=== PATIENT | male | born 1960 | race Caucasian/White ===

== ENCOUNTER 2018-01-26 20:20 | Emergency (ER) | payer BC ==
--- NOTE | 2018-01-26 20:54 | Emergency Department Record ---
History of Present Illness - General Chief Complaint: Abdominal Pain Stated Complaint: ABDOMINAL PAIN Time Seen by Provider: 01/26/18 20:37 Source: Patient Mode of Arrival: Ambulatory Limitations: No limitations - History of Present Illness Initial Comments: The patient is here due to AP for 33 hours. The onset was yesterday about noon and the patient describes the pain as an epigastric aching with RUQ pain that comes and goes. He has had no nausea or vomiting but has had loose stools today. The pain does worsen at times and cause pressure up into the chest on the R side. He denies any CP or SOB but has had a cough with sputum for a few weeks. The patient has been eating well and denies the pain getting better or worse with the pain. The patient also has had bilateral leg swelling for the last 2-3 months. MD Complaint: Abdominal pain Onset/Timin -: Days(s) Location: Epigastric, RUQ Radiation: RLQ Severity scale (1-10): 6 Quality: Aching Consistency: Constant Improves With: Nothing Associated Symptoms: Diarrhea - Related Data Home Medications Medication Instructions Recorded Confirmed Last Taken Albuterol Sulfate [Proair Hfa] 1 - 2 puff IH .EVERY 4-6 HOURS PRN 01/26/1801/26 Unknown Allergies Allergy/AdvReac Type Severity Reaction Status Date / Time No Known Drug Allergies Allergy Verified 01/26/18 20:25 Travel Screening - Travel/Exposure Within Last 30 Days Have you traveled within the last 30 days?: No - Travel Symptoms Symptom Screening: None Review of Systems Constitutional: Denies: Chills, Fever Eyes: Denies: Eye discharge ENT: Denies: Congestion Respiratory: Denies: Cough, Dyspnea, Hemoptysis Cardiovascular: Denies: Arrhythmia, Chest pain Endocrine: Denies: Fatigue Gastrointestinal: Reports: Abdominal pain, Diarrhea. Denies: Nausea, Vomiting Genitourinary: Denies: Dysuria Musculoskeletal: Denies: Arthralgia Past Medical History - SOCIAL HISTORY Smoking Status: Never smoker - RESPIRATORY Hx Respiratory Disorders: Yes Hx Asthma: Yes Hx Pneumonia: Yes (12/2017) Hx Sleep Apnea: Yes Hx of CPAP: Yes (not using right now) - CARDIOVASCULAR Hx Cardio Disorders: Yes Hx Hypertension: Yes Comment:: high cholesterol - NEURO Hx Neuro Disorders: No - GI Hx GI Disorders: Yes Comment:: Gallbladder issues-elevated labs; umbilical hernia, ?abd hernia - Hx Genitourinary Disorders: No - ENDOCRINE Hx Endocrine Disorders: No - MUSCULOSKELETAL Hx Musculoskeletal Disorders: Yes Hx Arthritis: Yes - PSYCH Hx Psych Problems: No - HEMATOLOGY/ONCOLOGY Hx Hematology/Oncology Disorders: No Family Medical History Any Significant Family History?: Yes Hx Diabetes: Mother Hx HTN: Father Physical Exam - General General Appearance: Alert, Oriented x3, Cooperative, No acute distress - Head Head exam: Atraumatic, Normocephalic, Normal inspection - Eye Eye exam: Normal appearance, PERRL, EOMI - Neck Neck exam: Normal inspection, Full ROM. negative: Tenderness - Respiratory Respiratory exam: Normal lung sounds bilaterally. negative: Respiratory distress - Cardiovascular Cardiovascular Exam: Regular rate, Normal rhythm, Systolic murmur (1/6 DESIREE.). negative: Normal heart sounds - GI/Abdominal GI/Abdominal exam: Soft, Tenderness (There is mild RUQ and epigastric tenderness.). negative: Distended, Rebound, Rigid - Extremities Extremities exam: Normal inspection, Full ROM, Normal capillary refill, Pedal edema (2+ bilaterally.). negative: Tenderness - Back Back exam: Reports: Normal inspection - Neurological Neurological exam: Alert, Normal gait. negative: Abnormal gait, Motor sensory deficit - Skin Skin exam: negative: Rash Course Vital Signs 01/26/18 01/26/18 20:26 20:30 Temperature 97.9 F Pulse Rate 87 Pulse Rate [ 92 H Pulse Ox Probe] Respiratory 20 Rate Blood Pressure 181/103 Blood Pressure 174/96 [Left Arm] Pulse Ox 96 - Reevaluation(s) Reevaluation #1: The patient is doing OK at this time. He denies any significant pain or discomfort. I did discuss the lab results with him and the need for further evaluation. 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 He has seen Dr. Gil and would like to go to [facility]. 01/26/18 21:58 Reevaluation #2: I did discuss the case with Dr. Quick at [facility] and she does accept the patient for admission. I did discuss the case at length and the need for an abdominal US and surgical and cardiology consults. 01/26/18 22:27 01/26/18 22:28 Medical Decision Making - Data Complexity MDM Data: Labs Ordered and/or Reviewed, X-Ray Ordered and/or Reviewed, EKG Ordered and/or Reviewed - Lab Data Result diagrams: 01/26/18 20:51 01/26/18 20:51 - EKG Data -: EKG Interpreted by Me EKG: No Acute Changes - Radiology Data Radiology results: Report reviewed (CXR: CMG Abd CT: Poss thickened GB wall with fluid.) Disposition Disposition: Transfer Disposition: Acute Care Hospital Transfer Transfer To: [facility] Reason For Transfer: Cardiology Accepting Physician: Abdelrahman Time Discussed w/Accepting Physician: 10:30 Condition: (2) Stable Forms: Patient Portal Access Time of Disposition: 23:42 Quality - Quality Measures Quality Measures: N/A - Blood Pressure Screening View Details: Yes Does Patient Have Any of the Following: Active Dx of HTN Blood Pressure Classification: Hypertensive Reading Systolic Measurement: 181 Diastolic Measurement: 103 Screening for High Blood Pressure: Patient Exclusion, Hx of HTN [G9744]
[2018-01-26 20:56] LABS: BASO % 0.5 % (0-6); EOS % 0.9 % (0-6); GRAN % 63.5 % (47-80); HEMATOCRIT 42.4 % (42.0-52.0); HEMOGLOBIN 13.9 gm/dl (14.0-18.0); LYMPH % 27.1 % (16-45); MEAN CELL VOLUME 90.4 fl (81-97); MEAN CORPUSCULAR HEMOGLOBIN 29.6 pg (27-33); MEAN CORPUSCULAR HGB CONC 32.8 g/dl (32-36); MEAN PLATELET VOLUME 10.3 fl (7.4-10.4); PLATELET COUNT 216 K/uL (130-400); RED BLOOD COUNT 4.69 M/uL (4.40-5.70); RED CELL DISTRIBUTION WIDTH 13.4 % (11.5-14.5); WHITE BLOOD COUNT W/O DIFF 8.1 K/uL (4.2-12.2)
[2018-01-26 21:04] LABS: BLOOD UREA NITROGEN 21 mg/dL (6-20); CREATININE 0.8 mg/dL (0.7-1.2); EST GLOMERULAR FILTRATION RATE > 60 mL/min
[2018-01-26 21:05] LABS: TOTAL PROTEIN 6.4 g/dL (6.6-8.7)
[2018-01-26 21:07] LABS: GLUCOSE,RANDOM 149 mg/dL (74-109); INR 1.1; PARTIAL THROMBOPLASTIN TIME 26.5 SECONDS (24.5-39.1)
[2018-01-26 21:09] LABS: ALBUMIN 4.1 g/dL (4.0-5.0); ALKALINE PHOSPHATASE 56 U/L (40-129); ALT/SGPT 149 U/L (<41); AST/SGOT 65 U/L (10.0-50.0); BILIRUBIN,DIRECT < 0.2 mg/dL (0-0.3)
[2018-01-26 21:10] LABS: CREATINE PHOSPHOKINASE 245 U/L (39-308)
[2018-01-26 21:11] LABS: CKMB 8.9 ng/mL (<6.73)
[2018-01-26 21:14] LABS: CKMB RELATIVE INDEX 3.63 % (0-4)
[2018-01-26 21:50] LABS: URINE APPEARANCE CLEAR; URINE BILIRUBIN NEGATIVE (NEGATIVE); URINE BLOOD NEGATIVE (NEGATIVE); URINE COLOR YELLOW; URINE GLUCOSE (UA) NEGATIVE (NEGATIVE); URINE KETONE NEGATIVE (NEGATIVE); URINE LEUKOCYTE ESTERASE NEGATIVE (NEGATIVE); URINE NITRITE NEGATIVE (NEGATIVE); URINE PROTEIN NEGATIVE (NEGATIVE); URINE UROBILINOGEN 0.2 E.U./dL (0.20 - 1.00)
[2018-01-26] MEDS ORDERED: FUROSEMIDE IV 40MG/4ML VIAL IVP ONE (22:02)
[2018-01-26] MEDS ORDERED: ASPIRIN 325 MG TABLET PO ONE (22:18)
--- NOTE | 2018-01-28 10:47 | RADIOLOGY REPORT ---
EXAM: CHEST, TWO VIEWS HISTORY: DIFFICULTY IN BREATHING. TECHNIQUE: PA and lateral views of the chest were obtained. Comparison: Portable chest 11/22/11. FINDINGS: Cardiomegaly. There is a somewhat globular configuration which can be seen with pericardial effusion. No definite acute infiltrate seen. No pleural effusion or pneumothorax evident. Hypertrophic spurring in the spine. IMPRESSION: CARDIOMEGALY. NO DEFINITE ACUTE INFILTRATE SEEN. JOB NUMBER: [id number] MTDD
--- NOTE | 2018-01-28 10:59 | CT SCAN REPORT ---
EXAM: EMERGENCY CT OF THE ABDOMEN AND PELVIS WITHOUT CONTRAST HISTORY: ABDOMINAL PAIN. TECHNIQUE: Axial CT scan of the abdomen and pelvis was performed without oral or IV contrast. Comparison: No prior CT. FINDINGS: No calcified gallstones are seen within the gallbladder, however, there is a suggestion of some mild thickening of the gallbladder wall or possibly some pericholecystic fluid. Clinical correlation as to the possibility of acute cholecystitis suggested and if clinically warranted, follow -up gallbladder ultrasound might be useful. No intrarenal calculi identified on either side. No hydronephrosis or hydroureter is seen on either side. No definite ureteral calculus seen on either side and no bladder calculus evident. Evaluation of the bowel and viscera is extremely limited without oral or IV contrast. Given this limitation, no definite hepatic, splenic, adrenal, pancreatic, or renal mass identified. Some coronary artery calcification is present. Some prostate calcification is noted. The appendix is visualized as a normal caliber structure with no appendicitis evident. There is some hazy density in the subcutaneous tissues anteriorly. This may represent some cellulitis and clinical correlation is suggested. No discreet abscess seen in the subcutaneous tissues. There is a periumbilical anterior abdominal wall hernia containing adipose tissue, but no bowel. No free intraperitoneal air or free intraperitoneal fluid evident. Degenerative disk disease at the L3-L4 interspace. There is some mild streaky density in the retroperitoneum along the course of both ureters. This may be on a post inflammatory basis, but does not appear to be causing any obstruction of either ureter currently. Correlation with urinalysis, however, is suggested to exclude current urinary tract infection. IMPRESSION: 1. NO CALCIFIED GALLSTONES SEEN IN THE GALLBLADDER, BUT THE GALLBLADDER DOES HAVE A SOMEWHAT THICK WALLED APPEARANCE POSSIBLY WITH SOME FLUID AROUND THE GALLBLADDER. CLINICAL CORRELATION TO ACUTE CHOLECYSTITIS IS SUGGESTED. 2. NO URINARY TRACT CALCULI OR HYDRONEPHROSIS EVIDENT. SLIGHT SOFT TISSUE STRANDING ABOUT BOTH URETERS, HOWEVER, POSSIBLY RELATED TO PRIOR INFECTION. CLINICAL CORRELATION TO URINARY TRACT INFECTION IS SUGGESTED. 3. HAZY INCREASED DENSITY IN THE SUBCUTANEOUS TISSUES OF THE ANTERIOR ABDOMINAL WALL COULD REPRESENT SOME CELLULITIS. 4. THE APPENDIX APPEARS NEGATIVE. NO FREE AIR OR FREE FLUID EVIDENT. 5. CORONARY ARTERY CALCIFICATION. 6. PROSTATE CALCIFICATION WELL. JOB NUMBER: [id number] [facility]
--- NOTE | 2018-01-28 18:50 | Emergency Department Record ---
History of Present Illness - General Chief Complaint: Abdominal Pain Stated Complaint: ABDOMINAL PAIN Time Seen by Provider: 01/26/18 20:37 Source: Patient Mode of Arrival: Ambulatory Limitations: No limitations - History of Present Illness MD Complaint: Abdominal pain Onset/Timin -: Days(s) Location: Epigastric, RUQ Radiation: RLQ Severity scale (1-10): 6 Quality: Aching Consistency: Constant Improves With: Nothing Associated Symptoms: Diarrhea - Related Data Home Medications Medication Instructions Recorded Confirmed Last Taken Albuterol Sulfate [Proair Hfa] 1 - 2 puff IH .EVERY 4-6 HOURS PRN 01/26/1801/26 Unknown Allergies Allergy/AdvReac Type Severity Reaction Status Date / Time No Known Drug Allergies Allergy Verified 01/26/18 20:25 Travel Screening - Travel/Exposure Within Last 30 Days Have you traveled within the last 30 days?: No - Travel Symptoms Symptom Screening: None Review of Systems Constitutional: Denies: Chills, Fever Eyes: Denies: Eye discharge ENT: Denies: Congestion Respiratory: Denies: Cough, Dyspnea, Hemoptysis Cardiovascular: Denies: Arrhythmia, Chest pain Endocrine: Denies: Fatigue Gastrointestinal: Reports: Abdominal pain, Diarrhea. Denies: Nausea, Vomiting Genitourinary: Denies: Dysuria Musculoskeletal: Denies: Arthralgia Past Medical History - SOCIAL HISTORY Smoking Status: Never smoker - RESPIRATORY Hx Respiratory Disorders: Yes Hx Asthma: Yes Hx Pneumonia: Yes (12/2017) Hx Sleep Apnea: Yes Hx of CPAP: Yes (not using right now) - CARDIOVASCULAR Hx Cardio Disorders: Yes Hx Hypertension: Yes Comment:: high cholesterol - NEURO Hx Neuro Disorders: No - GI Hx GI Disorders: Yes Comment:: Gallbladder issues-elevated labs; umbilical hernia, ?abd hernia - Hx Genitourinary Disorders: No - ENDOCRINE Hx Endocrine Disorders: No - MUSCULOSKELETAL Hx Musculoskeletal Disorders: Yes Hx Arthritis: Yes - PSYCH Hx Psych Problems: No - HEMATOLOGY/ONCOLOGY Hx Hematology/Oncology Disorders: No Family Medical History Any Significant Family History?: Yes Hx Diabetes: Mother Hx HTN: Father Physical Exam - General Limitations: No limitations Course Vital Signs 01/26/18 01/26/18 01/26/18 20:26 20:30 21:21 Temperature 97.9 F Pulse Rate 87 Pulse Rate [ Station Cashier ] Pulse Rate [ 92 H 76 Pulse Ox Probe] Respiratory 20 18 Rate Blood Pressure 181/103 Blood Pressure 174/96 149/90 [Left Arm] Pulse Ox 96 96 01/26/18 01/26/18 22:17 23:01 Temperature Pulse Rate Pulse Rate [ 73 Station Cashier ] Pulse Rate [ 75 Pulse Ox Probe] Respiratory 22 20 Rate Blood Pressure Blood Pressure 164/99 144/78 [Left Arm] Pulse Ox 95 95 Medical Decision Making - Lab Data Result diagrams: 01/26/18 20:51 01/26/18 20:51 Lab Results 01/26/18 01/26/18 01/26/18 Range/Units 20:50 20:51 20:51 WBC 8.1 (4.2-12.2) K/uL RBC 4.69 (4.40-5.70) M/uL Hgb 13.9 L (14.0-18.0) gm/dl Hct 42.4 (42.0-52.0) % MCV 90.4 (81-97) fl MCH 29.6 (27-33) pg MCHC 32.8 (32-36) g/dl RDW 13.4 (11.5-14.5) % Plt Count 216 (130-400) K/uL MPV 10.3 (7.4-10.4) fl Gran % 63.5 (47-80) % Lymphocytes % 27.1 (16-45) % Monocytes % 8.0 (0-9) % Eosinophils % 0.9 (0-6) % Basophils % 0.5 (0-6) % PT 11.0 (9.5-12.1) SECONDS INR 1.1 APTT 26.5 (24.5-39.1) SECONDS Sodium (136-145) mmol/L Potassium (3.4-4.5) mmol/L Chloride (98-107) mmol/L Carbon Dioxide (22-29) mmol/L Anion Gap (7-16) BUN (6-20) mg/dL Creatinine (0.7-1.2) mg/dL Estimated GFR mL/min Random Glucose (74-109) mg/dL Calcium (8.6-10.0) mg/dL Total Bilirubin (0.2-1.0) mg/dL Direct Bilirubin (0-0.3) mg/dL AST (10.0-50.0) U/L ALT (<41) U/L Alkaline Phosphatase (40-129) U/L Creatine Kinase (39-308) U/L CK-MB (CK-2) (<6.73) ng/mL CK-MB (CK-2) Rel Index (0-4) % Troponin T (0-0.010) ng/mL NT-Pro-B Natriuret Pep (<125) pg/mL Total Protein (6.6-8.7) g/dL Albumin (4.0-5.0) g/dL Lipase 34 (13-60) U/L Urine Color Urine Appearance Urine pH (5.0-8.0) Ur Specific [place] (1.002-1.030) Urine Protein (NEGATIVE) Urine Glucose (UA) (NEGATIVE) Urine Ketones (NEGATIVE) Urine Blood (NEGATIVE) Urine Nitrite (NEGATIVE) Urine Bilirubin (NEGATIVE) Urine Urobilinogen (0.20 - 1.00) E.U./dL Ur Leukocyte Esterase (NEGATIVE) 01/26/18 01/26/18 01/26/18 Range/Units 20:51 20:51 20:51 WBC (4.2-12.2) K/uL RBC (4.40-5.70) M/uL Hgb (14.0-18.0) gm/dl Hct (42.0-52.0) % MCV (81-97) fl MCH (27-33) pg MCHC (32-36) g/dl RDW (11.5-14.5) % Plt Count (130-400) K/uL MPV (7.4-10.4) fl Gran % (47-80) % Lymphocytes % (16-45) % Monocytes % (0-9) % Eosinophils % (0-6) % Basophils % (0-6) % PT (9.5-12.1) SECONDS INR APTT (24.5-39.1) SECONDS Sodium 139 (136-145) mmol/L Potassium 4.1 (3.4-4.5) mmol/L Chloride 103 (98-107) mmol/L Carbon Dioxide 24.0 (22-29) mmol/L Anion Gap 12.0 (7-16) BUN 21 H (6-20) mg/dL Creatinine 0.8 (0.7-1.2) mg/dL Estimated GFR > 60 mL/min Random Glucose 149 H (74-109) mg/dL Calcium 8.9 (8.6-10.0) mg/dL Total Bilirubin 0.40 (0.2-1.0) mg/dL Direct Bilirubin < 0.2 (0-0.3) mg/dL AST 65 H (10.0-50.0) U/L ALT 149 H (<41) U/L Alkaline Phosphatase 56 (40-129) U/L Creatine Kinase 245 Cancelled (39-308) U/L CK-MB (CK-2) 8.9 H (<6.73) ng/mL CK-MB (CK-2) Rel Index 3.63 (0-4) % Troponin T 0.018 H (0-0.010) ng/mL NT-Pro-B Natriuret Pep 1595.00 H (<125) pg/mL Total Protein 6.4 L (6.6-8.7) g/dL Albumin 4.1 (4.0-5.0) g/dL Lipase (13-60) U/L Urine Color Urine Appearance Urine pH (5.0-8.0) Ur Specific [place] (1.002-1.030) Urine Protein (NEGATIVE) Urine Glucose (UA) (NEGATIVE) Urine Ketones (NEGATIVE) Urine Blood (NEGATIVE) Urine Nitrite (NEGATIVE) Urine Bilirubin (NEGATIVE) Urine Urobilinogen (0.20 - 1.00) E.U./dL Ur Leukocyte Esterase (NEGATIVE) 01/26/18 Range/Units 21:51 WBC (4.2-12.2) K/uL RBC (4.40-5.70) M/uL Hgb (14.0-18.0) gm/dl Hct (42.0-52.0) % MCV (81-97) fl MCH (27-33) pg MCHC (32-36) g/dl RDW (11.5-14.5) % Plt Count (130-400) K/uL MPV (7.4-10.4) fl Gran % (47-80) % Lymphocytes % (16-45) % Monocytes % (0-9) % Eosinophils % (0-6) % Basophils % (0-6) % PT (9.5-12.1) SECONDS INR APTT (24.5-39.1) SECONDS Sodium (136-145) mmol/L Potassium (3.4-4.5) mmol/L Chloride (98-107) mmol/L Carbon Dioxide (22-29) mmol/L Anion Gap (7-16) BUN (6-20) mg/dL Creatinine (0.7-1.2) mg/dL Estimated GFR mL/min Random Glucose (74-109) mg/dL Calcium (8.6-10.0) mg/dL Total Bilirubin (0.2-1.0) mg/dL Direct Bilirubin (0-0.3) mg/dL AST (10.0-50.0) U/L ALT (<41) U/L Alkaline Phosphatase (40-129) U/L Creatine Kinase (39-308) U/L CK-MB (CK-2) (<6.73) ng/mL CK-MB (CK-2) Rel Index (0-4) % Troponin T (0-0.010) ng/mL NT-Pro-B Natriuret Pep (<125) pg/mL Total Protein (6.6-8.7) g/dL Albumin (4.0-5.0) g/dL Lipase (13-60) U/L Urine Color Yellow Urine Appearance Clear Urine pH 5.5 (5.0-8.0) Ur Specific [place] 1.020 (1.002-1.030) Urine Protein Negative (NEGATIVE) Urine Glucose (UA) Negative (NEGATIVE) Urine Ketones Negative (NEGATIVE) Urine Blood Negative (NEGATIVE) Urine Nitrite Negative (NEGATIVE) Urine Bilirubin Negative (NEGATIVE) Urine Urobilinogen 0.2 (0.20 - 1.00) E.U./dL Ur Leukocyte Esterase Negative (NEGATIVE) Disposition Disposition: Transfer Clinical Impression: CHF (congestive heart failure) Qualifiers: Heart failure type: unspecified Heart failure chronicity: unspecified Qualified Code(s): I50.9 - Heart failure, unspecified Disposition: Acute Care Hospital [facility] Reason For Transfer: Cardoilogy Accepting Physician: Hospitalist. Time Discussed w/Accepting Physician: 18:50 Condition: (2) Stable Forms: Patient Portal Access Quality - Quality Measures Quality Measures: N/A - Blood Pressure Screening View Details: Yes Does Patient Have Any of the Following: Active Dx of HTN Blood Pressure Classification: Hypertensive Reading Systolic Measurement: 181 Diastolic Measurement: 103 Screening for High Blood Pressure: Patient Exclusion, Hx of HTN [G9290]
== END 2018-01-26 23:15 | disposition short-term general hospital (02) ==
LOC: ER 20:20
DX: I50.9 Heart failure, unspecified (principal); R10.84 Generalized abdominal pain; R06.02 Shortness of breath; R19.7 Diarrhea, unspecified; I10 Essential (primary) hypertension
CPT/HCPCS: 71046; 74176; 80048; 80076; 81003; 82550; 82553; 83690; 83880; 84484; 85025; 85610; 85730; 93005; 93010; 96374; 99285; J1940

== ENCOUNTER 2019-03-18 17:57 | Emergency (ER) | payer BC ==
--- NOTE | 2019-03-18 18:10 | Emergency Department Record ---
History of Present Illness - General Chief Complaint: Cough Stated Complaint: THINKS HE HAS PNEUMONIA Time Seen by Provider: 03/18/19 18:00 Source: Patient Mode of Arrival: Ambulatory Limitations: No limitations - History of Present Illness Initial Comments: 58 yo male with a past medical history significant for asthma presents to ED for possible pneumonia. Patient reports productive cough symptoms, drainage, and sore throat symptoms that began 3 days ago. Patient denies fever symptoms, does report receiving an influenza vaccination in December of this year. Patient denies chest pain or difficulty in breathing symptoms. MD Complaint: Cough Onset/Timin -: Days(s) Severity: Moderate Consistency: Intermittent Improves With: Nothing Worsens With: Nothing Associated Symptoms: Sore throat Treatments Prior to Arrival: "Cold medicine" - Related Data Previous Rx's Medication Instructions Recorded Azithromycin [Zithromax] 250 mg PO DAILY #6 tab 03/18/19 Prednisone [Prednisone 20Mg] 20 mg PO BID #14 tab 03/18/19 Allergies Allergy/AdvReac Type Severity Reaction Status Date / Time No Known Drug Allergies Allergy Unverified 12/23/18 17:06 Review of Systems Constitutional: Denies: Chills, Fever, Malaise, Night sweats Eyes: Denies: Eye discharge, Eye pain ENT: Reports: Congestion. Denies: Ear pain, Epistaxis Respiratory: Reports: Cough. Denies: Dyspnea Cardiovascular: Denies: Chest pain, Dyspnea on exertion, Edema Endocrine: Denies: Fatigue, Heat or cold intolerance Gastrointestinal: Denies: Abdominal pain, Nausea, Vomiting Genitourinary: Denies: Incontinence, Retention Musculoskeletal: Denies: Arthralgia, Back pain Skin: Denies: Bruising, Change in color Neurological: Denies: Abnormal gait, Confusion, Headache, Tingling, Tremors Psychiatric: Denies: Anxiety Hematological/Lymphatic: Denies: Anemia, Blood Clots Past Medical History - SOCIAL HISTORY Smoking Status: Never smoker - RESPIRATORY Hx Respiratory Disorders: Yes Hx Asthma: Yes Hx Pneumonia: Yes (12/2017) Hx Sleep Apnea: Yes Hx of CPAP: Yes (not using right now) - CARDIOVASCULAR Hx Cardio Disorders: Yes Hx Hypertension: Yes Comment:: high cholesterol - NEURO Hx Neuro Disorders: No - GI Hx GI Disorders: Yes Comment:: Gallbladder issues-elevated labs; umbilical hernia, ?abd hernia - Hx Genitourinary Disorders: No - ENDOCRINE Hx Endocrine Disorders: No - MUSCULOSKELETAL Hx Musculoskeletal Disorders: Yes Hx Arthritis: Yes - PSYCH Hx Psych Problems: No - HEMATOLOGY/ONCOLOGY Hx Hematology/Oncology Disorders: No Family Medical History Hx Diabetes: Mother Hx HTN: Father Physical Exam - General General Appearance: Alert, Oriented x3, Cooperative, Mild distress Limitations: No limitations - Head Head exam: Atraumatic, Normocephalic, Normal inspection Head exam detail: negative: Abrasion, Contusion, Roger's sign, General tenderness, Hematoma, Laceration - Eye Eye exam: Normal appearance. negative: Conjunctival injection, Periorbital swelling, Periorbital tenderness, Scleral icterus - ENT Ear exam: negative: Auricular hematoma, Auricular trauma Nasal Exam: negative: Active bleeding, Discharge, Dried blood, Foreign body, Sinus tenderness Mouth exam: negative: Drooling, Laceration, Muffled voice, Tongue elevation Throat exam: negative: Tonsillar erythema, Tonsillomegaly, R peritonsillar mass, L peritonsillar mass - Neck Neck exam: Normal inspection. negative: Meningismus, Tenderness - Respiratory Respiratory exam: Normal lung sounds bilaterally. negative: Respiratory distress, Rhonchi, Stridor, Wheezes - Cardiovascular Cardiovascular Exam: Regular rate, Normal rhythm, Normal heart sounds - GI/Abdominal GI/Abdominal exam: Soft. negative: Distended, Rebound, Rigid, Tenderness - Rectal Rectal exam: Deferred - exam: Deferred - Extremities Extremities exam: Normal inspection. negative: Pedal edema, Tenderness - Back Back exam: Denies: CVA tenderness (R), CVA tenderness (L) - Neurological Neurological exam: Alert, Normal gait, Oriented X3 - Psychiatric Psychiatric exam: Normal affect, Normal mood - Skin Skin exam: Normal color. negative: Abrasion Type of lesion: negative: abrasion Course - Reevaluation(s) Reevaluation #1: 03/18/19 18:53 CXR: No focal infiltrate 4 mm nodule left mid-lung Patient was updated on all results, history and examination appear c/w bronchitis. Will treat with Zithromax and Prednisone as directed. Patient was counseled re: left mid-lung nodule, recommend repeat imaging in 3-6 months for stability. Patient appears stable for discharge at this time. Disposition Disposition: Discharge Clinical Impression: Acute bronchitis Qualifiers: Bronchitis organism: unspecified organism Qualified Code(s): J20.9 - Acute bronchitis, unspecified Disposition: Home, Self-Care Condition: (2) Stable Instructions: Acute Bronchitis (ED) Additional Instructions: Return to ED if your symptoms worsen or if you have any concerns. Prednisone and Zithromax as directed. Follow-up with your family doctor in 3-5 days as directed. Follow-up chest radiograph in 3-6 months re: left mid-lung nodule Prescriptions: Prednisone [Prednisone 20Mg] 20 mg PO BID #14 tab Azithromycin [Zithromax] 250 mg PO DAILY #6 tab Forms: Patient Portal Access Time of Disposition: 18:54 Quality - Quality Measures Quality Measures: N/A, Adult Bronchitis (18-64yr) - Adult Bronchitis Quality Measure: Measure #116: Avoidance of ABX w/Adult Bronchitis ICD10 Codes Entered: Yes Is patient being admitted: No Avoidance of ABX w/Bronchitis: Medical Reason for prescribing ABX [G9712] Medical Reason For Rx: Chronic obstructive asthma - Blood Pressure Screening Does Patient Have Any of the Following: Active Dx of HTN Blood Pressure Classification: Hypertensive Reading Systolic Measurement: 179 Diastolic Measurement: 90 Screening for High Blood Pressure: Patient Exclusion, Hx of HTN [G9744]
--- NOTE | 2019-03-18 18:50 | RADIOLOGY REPORT ---
EXAMINATION: Two View Chest Radiographs EXAM DATE: 03/18/2019 6:37 PM TECHNIQUE: Frontal and lateral views INDICATION: cough COMPARISON: Report from chest x-ray January 26, 2018 for which the images are not available ENCOUNTER: Not applicable FINDINGS: The heart, mediastinum, and pulmonary vasculature are normal. No lung consolidation or pleural effu sions are present. 4 mm nodule left midlung field not reported on previous exam. Follow-up to demonstrate stability prog ression or resolution recommended. IMPRESSION: Negative for focal infiltrate 4 mm nodule left midlung field not reported on previous exam. Follow-up to demonstrate stability prog ression or resolution recommended. Dictated by: Eric Luo MD on 03/18/2019 6:46 PM. .
== END 2019-03-18 19:06 | disposition home or self-care (01) ==
LOC: ER 17:57
DX: J20.9 Acute bronchitis, unspecified (principal); I10 Essential (primary) hypertension
CPT/HCPCS: 71046; 99283